=== PATIENT | male | born 2000 | race Two or more races ===

== ENCOUNTER 2024-05-25 23:24 | Emergency (ER) | payer OTHER ==
[~2024-05-25] VITALS: Ht 180.3 cm; Wt 79.4 kg
[2024-05-25] MEDS ORDERED: VITAMEDMD REDI1.4 MG PO (23:34)
[2024-05-26] MEDS ORDERED: TETANUS & DIPHTHERIA TOX,ADULT 0.5 ML VIAL IM STA (02:00)
[2024-05-26] MEDS ORDERED: CEFAZOLIN SODIUM 1,000 MG VIAL IM STA (02:00)
[2024-05-26] MEDS ORDERED: CEFAZOLIN SODIUM 1,000 MG VIAL ONE (02:14)
[2024-05-26] MEDS ORDERED: TETANUS DIPHTHERIA TOX. ADSOR 5 ML VIAL IM ONE (02:14)
[2024-05-26] MEDS ORDERED: LIDOCAINE HCL 1% 10ML VIAL ONE (02:14)
== END 2024-05-26 02:49 | disposition home or self-care (01) ==
LOC: ER 23:26
DX: S01.81XA Laceration without foreign body of other part of head, initial encounter (principal); X58.XXXA Exposure to other specified factors, initial encounter; Y93.66 Activity, soccer; Y92.9 Unspecified place or not applicable; Y99.9 Unspecified external cause status